=== PATIENT | female | born 1960 | race African-American/Black ===

== ENCOUNTER 2017-10-05 09:21 | Day surgery (SDC) | payer MEDICARE, MEDICAID ==
[2017-10-04 15:54] VITALS: BMI 38.2
--- NOTE | 2017-10-05 06:15 | HP ---
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 The patient has been treated successfully with Harvoni for her hepatitis C. After 3 months of therapy, her HCV RNA was negative. The patient gives history of dysphagia off and on. The food hangs in the esophagus, and she has to drink water and coughs and chokes. The patient comes for an EGD because of dysphagia. ALLERGIES: None. PAST MEDICAL HISTORY: 1. Hypertension. 2. Hyperlipidemia. 3. Diabetes mellitus. 4. Liver cirrhosis due to combination of alcohol abuse and hepatitis C. 5. Hepatitis C. 6. Asthma. 7. Osteoarthritis. PHYSICAL EXAMINATION: GENERAL: The patient is obese, appears comfortable. VITAL SIGNS: Pulse is 70, blood pressure 110/70. HEENT: Conjunctivae clear. CARDIOVASCULAR: Lungs within normal limits. ABDOMEN: Soft to palpate. No organomegaly. No tenderness. No masses. ADMITTING DIAGNOSIS: Dysphagia. PLAN: EGD. MTDD
[2017-10-05] MEDS ORDERED: Lidocaine 1% PF 5 ML VIAL ONE (15:53)
[2017-10-05] MEDS ORDERED: Propofol 200 MG/20 ML VIAL ONE (15:53)
--- NOTE | 2017-10-05 22:10 | OP ---
DATE OF PROCEDURE: 10/05/2017 PROCEDURES PERFORMED: 1. Esophagogastroduodenoscopy with biopsy 2. Esophageal dilation with a [address] [place] dilator. PREOPERATIVE DIAGNOSIS: Dysphagia. The patient has dysphagia off and on. The food hangs in the eso phagus. She was coughing and choking. The patient is undergoing esophagogastroduodenoscopy. POSTOPERATIVE DIAGNOSES: 1. Normal esophageal mucosa and no intrinsic lesions seen. No esophageal mass or stricture was seen . 2. Gastritis. 3. Ulcer in the duodenal bulb. PROCEDURE IN DETAIL: The patient was placed on her left lateral position and was given sedation by A nesthesia Department. A [employer] video gastroscope under direct vision was passed down the oropharynx, past the gastroesophageal junction, into the stomach and subsequently into the descending duodenum. Although the patient complained of dysphagia, endoscopy . The scope was advanced into the stom ach without any resistance. The scope we used was a therapeutic scope and the diameter approximately comes around at 38 [place] in diameter. The scope was advanced into the stomach without difficulty. Retroflexion failed to show any lesions in the fundus or cardia. The gastric body, no pathology see n. The gastric antrum shows few erosions and gastritis. The duodenal bulb showed ulceration. The d escending duodenum, no pathology seen. Biopsies of the gastric antrum and gastric body. The stomach was decompressed and the scope removed. Because of history of dysphagia, it was elected to pass a 4 [address] [place] dilator. This was passed down with no resistance. DISCHARGE PLANNING: This is a 57-year-old female with dysphagia to solid food for s everal months. She came in for an EGD. The EGD showed no esophageal pathology. The site was wide o pen. A 48-[place] dilator was passed down with no resistance. She did have gastritis and ulc er in the duodenal bulb. She underwent biopsy of the gastric antrum and gastric body. DISCHARGE RECOMMENDATIONS: 1. Omeprazole 40 once a day. 2. The patient is reassured that it was a negative scope, and she will come back to me in 2 weeks ti mes period.
== END 2017-10-05 16:00 | disposition home or self-care (01) ==
LOC: SDC 09:21
PROVIDERS: ATTEND Internal Medicine Gastroenterology
PROC: 0DB78ZX Excision of Stomach, Pylorus, Via Natural or Artificial Opening Endoscopic, Diagnostic (ICD-10-PCS; principal; 2017-10-05)
PROC: 0D757DZ Dilation of Esophagus with Intraluminal Device, Via Natural or Artificial Opening (ICD-10-PCS; 2017-10-05)
DX: R13.10 Dysphagia, unspecified (principal); K29.50 Unspecified chronic gastritis without bleeding; K26.9 Duodenal ulcer, unspecified as acute or chronic, without hemorrhage or perforation; K70.30 Alcoholic cirrhosis of liver without ascites; B19.20 Unspecified viral hepatitis C without hepatic coma; I10 Essential (primary) hypertension; E78.5 Hyperlipidemia, unspecified; E11.9 Type 2 diabetes mellitus without complications; F10.10 Alcohol abuse, uncomplicated; J45.909 Unspecified asthma, uncomplicated; M19.90 Unspecified osteoarthritis, unspecified site; Z79.4 Long term (current) use of insulin; Z79.891 Long term (current) use of opiate analgesic; Z79.899 Other long term (current) drug therapy; Z90.710 Acquired absence of both cervix and uterus; Z98.890 Other specified postprocedural states
CPT/HCPCS: 36416; 88305; 88312; J2001; J2704